=== PATIENT | male | born 1985 | race Caucasian/White ===

== ENCOUNTER 2017-08-07 08:42 | Inpatient (IN) | payer OTHER ==
[2017-08-07 09:47] VITALS: BMI 31.5
--- NOTE | 2017-08-07 13:58 | HP ---
COWS - Scale Resting Pulse: 1= [place] 81-100 Sweatin= Chills/Flushing Restless Observation: 3= Extraneous Movement Pupil Size: 2= Moderately Dilated Bone or Joint Aches: 4=Acute Joint/Muscle Pain Runny Nose/ Eye Tearin= Runny Nose/Eyes GI Upset > 30mins: 2= Nausea/Diarrhea (NAUSEA) Tremor Observation: 2= Slight Tremor Visible Yawning Observation: 0= None Anxiety or Irritability: 2=Irritable/Anxious Goose Flesh Skin: 0=Smooth Skin COWS Score: 19 CIWA Score - CIWA Score Nausea/Vomitin (NAUSEA) Muscle Tremors: 4-Moderate,w/Arms Extend Anxiety: 4-Mod. Anxious/Guarded Agitation: 4-Moderately Restless Paroxysmal Sweats: 1-Minimal Palms Moist Orientation: 0-Oriented Tacttile Disturbances: 0-None Auditory Disturbances: 0-None Visual Disturbances: 0-None Headache: 0-None Present CIWA-Ar Total Score: 16 Admission ROS S - HPI Chief Complaint: HEROIN AND ALCOHOL WITHDRAWAL SX Allergies/Adverse Reactions: Allergies Allergy/AdvReac Type Severity Reaction Status Date / Time Fish Containing Products Allergy Severe Swelling Verified 08/07/17 10:40 No Known Drug Allergies Allergy Verified 08/07/17 10:40 History of Present Illness: 32 Y/O H/MALE WITH A HX OF HEROIN AND ALCOHOL DEPENDENCE SEEKING DETOX [place]. Exam Limitations: No Limitations - Ebola screening Have you traveled outside of the country in the last 21 days: No (N) Have you had contact with anyone from an Ebola affected area: No Have you been sick,other than usual withdrawal symptoms: No Do you have a fever: No - Review of Systems Constitutional: Chills, Night Sweats, Changes in sleep, Unintentional Wgt. Loss EENT: reports: Tearing, Nose Congestion, Dental Problems (CAVITIES IN THE PAST) Respiratory: reports: Shortness of Breath (HX ASTHMA), Wheezing Cardiac: reports: Lightheadedness GI: reports: Nausea, Indigestion : reports: Frequency Musculoskeletal: reports: Back Pain, Joint Pain, Muscle Pain Integumentary: reports: Bruising (SKIN PICKING DUE TO DRUG USE AND ANXIETY.), Rash Neuro: reports: Headache, Tremors, Unsteady Gait, Dizziness Endocrine: reports: No Symptoms Reported Hematology: reports: No Symptoms Reported Psychiatric: reports: Orientated x3, Anxious, Depressed Other Systems: Reviewed and Negative Patient History - Patient Medical History Hx Anemia: No Hx Asthma: Yes (ALBUTEROL INHALER) Hx Chronic Obstructive Pulmonary Disease (COPD): No Hx Cancer: No Hx Cardiac Disorders: No Hx Congestive Heart Failure: No Hx Hypertension: No Hx Hypercholesterolemia: No Hx Pacemaker: No HX Cerebrovascular Accident: No Hx Seizures: No Hx Dementia: No Hx Diabetes: No Hx Gastrointestinal Disorders: No Hx Liver Disease: No Hx Genitourinary Disorders: No Hx Sexually Transmitted Disorders: No Hx Renal Disease (ESRD): No Hx Thyroid Disease: No Hx Human Immunodeficiency Virus (HIV): No (NEGATIVE HX) Hx Hepatitis C: No Hx Depression: Yes (NO MEDS) Hx Suicide Attempt: No (DENIES S/I) Hx Bipolar Disorder: Yes Hx Schizophrenia: No - Patient Surgical History Past Surgical History: No Hx Neurologic Surgery: No Hx Cataract Extraction: No Hx Cardiac Surgery: No Hx Lung Surgery: No Hx Breast Surgery: No Hx Breast Biopsy: No Hx Abdominal Surgery: No Hx Appendectomy: No Hx Cholecystectomy: No Hx Genitourinary Surgery: No Hx Orthopedic Surgery: No Anesthesia Reaction: No - PPD History Previous Implant?: Yes Documented Results: Negative w/proof Date: 01/08/16 Results: NEGATIVE PPD to be Administered?: Yes - Reproductive History Patient is a Female of Child Bearing Age (11 -55 yrs old): No (MALE) - Smoking Cessation Smoking history: Current every day smoker Have you smoked in the past 12 months: Yes Aproximately how many cigarettes per day: 20 Cigars Per Day: 0 Hx Chewing Tobacco Use: No Initiated information on smoking cessation: Yes 'Breaking Loose' booklet given: 08/07/17 - Substance & Tx. History Hx Alcohol Use: Yes (BEER.WHISKEY) Hx Substance Use: Yes (HEROIN/OXYCODONE/COCAINE/MARIJUANA) Substance Use Type: Alcohol, Cocaine, Heroin, Marijuana, Opiates Hx Substance Use Treatment: Yes (LAST [place] AT [facility]) - Substances Abused Cocaine Route: Inhalation Frequency: Daily Amount used: $50 DOLLARS DAILY (1 GRAM DAILY) Age of first use: 16 Date of Last Use: 08/06/17 Alcohol Route: Oral Frequency: Daily Amount used: 1 6 PACK BEER (12 OUNCES), 3-4 SHOTS OF WHISKY Age of first use: 14 Date of Last Use: 08/06/17 Heroin Route: Inhalation Frequency: Daily Amount used: 4-5 BAGS DAILY Age of first use: Date of Last Use: 08/07/17 Marijuana/Hashish Route: Smoking Frequency: Daily Amount used: 1 gram Age of first use: 14 Date of Last Use: 08/06/17 Oxycodone Route: Inhalation Frequency: 1-2 times per week Amount used: 15 mg Age of first use: Date of Last Use: 08/04/17 Family Disease History - Family Disease History Family Disease History: Diabetes: Grandparent, Other: Father ( mva), Mother (migrain headache) Admission Physical Exam [facility] - Vital Signs Vital Signs: Vital Signs - 24 hr 08/07/17 09:45 Temperature 97.1 F L Pulse Rate 100 H Respiratory 16 Rate Blood Pressure 155/70 - Physical General Appearance: Yes: Moderate Distress, Irritable, Anxious HEENTM: Yes: EOMI, Normocephalic, CHON, Pharynx Normal, Nasal Congestion, Rhinorrhea Respiratory: Yes: Chest Non-Tender, Lungs Clear, Normal Breath Sounds, No Respiratory Distress Neck: Yes: No masses,lesions,Nodules, Supple, Trachea in good position Breast: Yes: Breast Exam Deferred Cardiology: Yes: Regular Rhythm, Regular Rate, S1, S2, Tachycardia Abdominal: Yes: Normal Bowel Sounds, Non Tender, Flat, Soft Genitourinary: Yes: Other (N/N/C) Back: Yes: Within Normal Limits Musculoskeletal: Yes: full range of Motion, Gait Steady Extremities: Yes: Normal Range of Motion, Non-Tender, Tremors Neurological: Yes: outsoles channel opener II-XII NML intact, Fully Oriented, Alert, Motor Strength 5/5 Integumentary: Yes: Dry, Warm, Rash ("SKIN PICKING" LESIONS/SCARS ON BOTH UPPER EXTREMITIES. NO REDNESS OR SWELLING.) Lymphatic: Yes: Within Normal Limits - Diagnostic (1) Alcohol dependence with withdrawal Current Visit: Yes Status: Acute Qualifiers: Complication of substance-induced condition: uncomplicated Qualified Code(s ): F10.230 - Alcohol dependence with withdrawal, uncomplicated (2) Opioid dependence on agonist therapy Current Visit: Yes Status: Acute (3) Asthma Current Visit: Yes Status: Chronic Qualifiers: Asthma severity: mild persistent Asthma complication type: with status asthmaticus Qualified Code(s): J45.32 - Mild persistent asthma with status asthmaticus (4) Nicotine dependence unspecified, with withdrawal Current Visit: Yes Status: Acute Qualifiers: Nicotine product type: cigarettes Qualified Code(s): F17.213 - Nicotine dependence, cigarettes, with withdrawal (5) Cannabis abuse Current Visit: Yes Status: Acute (6) Cocaine dependence Current Visit: Yes Status: Acute Qualifiers: Substance use status: uncomplicated Qualified Code(s): F14.20 - Cocaine dependence, uncomplicated Cleared for Admission S - Detox or Rehab [facility] Level of Care: Medically Managed Detox Regimen/Protocol: Methadone/Librium [facility] Breath Alcohol Content Breath Alcohol Content: 0 Urine Drug Screen - Results Drug Screen Negative: No Urine Drug Screen Results: THC-Marijuana, MINE-Cocaine, OPI-Opiates, AMP- Amphetamines, MDMA-Ecstasy, MTD-Methadone, TCA-Tricyclic Antidepress
[2017-08-07] MEDS ORDERED: P-EPHED 60MG/TRIPROLIDI 2.5MG TABLET PO PRN (14:10)
[2017-08-07] MEDS ORDERED: NICOTINE POLACRILEX 4 MG GUM BUC PRN (14:10)
[2017-08-07] MEDS ORDERED: IBUPROFEN 400 MG TABLET (FP) PO PRN (14:10)
[2017-08-07] MEDS ORDERED: MENTHOL/PHENOL 1 EACH UD MM PRN (14:10)
[2017-08-07] MEDS ORDERED: MAGNESIUM HYDROX 2400MG/30ML ORAL SUSPENSION 30 ML CUP PO PRN (14:10)
[2017-08-07] MEDS ORDERED: MAG HYDROX/AL HYDROX/SIMETH 30 ML UNIT-DOSE CUP PO PRN (14:10)
[2017-08-07] MEDS ORDERED: MAGNESIUM CITRATE 300 ML BOTTLE PO PRN (14:10)
[2017-08-07] MEDS ORDERED: guaiFENesin/D-METHORPHAN HB 10 ML UNIT-DOSE CUPS PO PRN (14:10)
[2017-08-07] MEDS ORDERED: ACETAMINOPHEN 325 MG TABLET (FP) PO PRN (14:10)
[2017-08-07] MEDS ORDERED: chlordiazePOXIDE HCL 25 MG CAPSULE PO PRN (14:10)
[2017-08-07] MEDS ORDERED: LOPERAMIDE HCL 2 MG CAPSULE PO PRN (14:10)
[2017-08-07] MEDS ORDERED: chlordiazePOXIDE HCL 25 MG CAPSULE PO ONE (14:35)
[2017-08-07] MEDS ORDERED: METHADONE HCL 10 MG TABLET (FOR DETOX USE ONLY) PO ONE ×2 (14:35→23:00)
[2017-08-07] MEDS: ALBUTEROL SO4 2.5/IPRATROPIUM 0.5 INH SOL 3 ML VIAL.NEB. NEB SCH ×3 (14:40→21:03)
[2017-08-07] MEDS: NICOTINE 21 MG/24 HOURS TOPICAL PATCH TD SCH (15:00)
--- NOTE | 2017-08-07 16:08 | CONSULT ---
[facility] Psychiatric Consult - Data Date of interview: 08/07/17 Admission source: [facility] Identifying data: Readmission to [facility] for this 32 y/o male seeking detox treatment [address] for alcohol,cocaine,cannabis,opiate and nicotine dependence.Patient is single without dependents,domiciled and reportedly employed. Substance Abuse History: Confirmed by the patient in this session.Details in current [facility] report.Smoking history: Current every day smoker. Have you smoked in the past 12 months: Yes. Aproximately how many cigarettes per day: 20. Cigars Per Day: 0. Hx Chewing Tobacco Use: No. Initiated information on smoking cessation: Yes. 'Breaking Loose' booklet given: 08/07/17. - Substance & Tx. History. Hx Alcohol Use: Yes (BEER.WHISKEY). Hx Substance Use: Yes ( HEROIN/OXYCODONE/COCAINE/MARIJUANA). Substance Use Type: Alcohol, Cocaine, Heroin, Marijuana, Opiates. Hx Substance Use Treatment: Yes (LAST TX AT [facility]). - Substances Abused. Cocaine. Route: Inhalation. Frequency: Daily. Amount used: $50 DOLLARS DAILY (1 GRAM DAILY). Age of first use: 16. Date of Last Use: 08/06/17. Alcohol. Route: Oral. Frequency: Daily. Amount used: 1 6 PACK BEER (12 OUNCES), 3-4 SHOTS OF WHISKY. Age of first use: 14. Date of Last Use: 08/06/17. Heroin. Route: Inhalation. Frequency: Daily. Amount used: 4-5 BAGS DAILY. Age of first use: 23. Date of Last Use: 08/07/17. Marijuana/Hashish. Route: Smoking. Frequency: Daily. Amount used: 1 gram. Age of first use: 14. Date of Last Use: 08/06/17. Oxycodone. Route: Inhalation. Frequency: 1-2 times per week. Amount used: 15 mg. Age of first use: 23. Date of Last Use: 08/04/17 Medical History: Bronchial asthma. Psychiatric History: No reported history of psychiatric hospitalizations.Diagnosed with ADHD by a private psychiatrist, Dr Avendaño, based in the [place].Prescribed methylphenidate and bupropion.Patient is also on suboxone maintenance.Mr Silva denies history of suicide attempts. Physical/Sexual Abuse/Trauma History: No history. Additional Comment: Urine Drug Screen Results: THC-Marijuana, MINE-Cocaine, OPI- Opiates, AMP-Amphetamines, MDMA-Ecstasy, MTD-Methadone, TCA-Tricyclic Antidepressant.Noted. Mental Status Exam - Mental Status Exam Alert and Oriented to: Time, Place, Person Cognitive Function: Good Patient Appearance: Well Groomed (tattoos on both forearms) Mood: Nervous, Withdrawn, Anxious Affect: Mood Congruent Patient Behavior: Fatigued, Appropriate, Cooperative Speech Pattern: Clear (luxembourger-fluent), Appropriate Voice Loudness: Normal Thought Process: Intact, Goal Oriented Thought Disorder: Not Present Hallucinations: Denies Suicidal Ideation: Denies Homicidal Ideation: Denies Insight/Judgement: Poor Sleep: Poorly, Difficulty falling asleep Appetite: Good Muscle strength/Tone: Normal Gait/Station: Normal Psychiatric Findings - Problem List ([place] 1, 2,3) (1) Alcohol dependence with withdrawal Current Visit: Yes Status: Acute Qualifiers: Complication of substance-induced condition: uncomplicated Qualified Code(s ): F10.230 - Alcohol dependence with withdrawal, uncomplicated (2) Cocaine dependence Current Visit: Yes Status: Acute Qualifiers: Substance use status: uncomplicated Qualified Code(s): F14.20 - Cocaine dependence, uncomplicated (3) Opioid dependence on agonist therapy Current Visit: Yes Status: Acute (4) Sedative, hypnotic or anxiolytic dependence with withdrawal, unspecified Current Visit: Yes Status: Acute (5) Marihuana dependence Current Visit: Yes Status: Acute (6) Substance induced mood disorder Current Visit: Yes Status: Acute (7) ADHD (attention deficit hyperactivity disorder) Current Visit: Yes Status: Chronic Comment: As per self-report.On psychostimulant. (8) Insomnia Current Visit: Yes Status: Acute - Initial Treatment Plan Initial Treatment Plan: Psychoeducation.Sleep hygiene.Detoxification in progress.Medication : ambien 10 mg po hs prn.Patient is made aware of the risk of parasomnias.Mr Silva agrees with to this careplan.Observation.
[2017-08-07] MEDS: ALBUTEROL SO4 18 GM HFA INHALER IH PRN (17:10)
[2017-08-07] MEDS: chlordiazePOXIDE HCL 25 MG CAPSULE PO SCH ×2 (17:12→22:09)
--- NOTE | 2017-08-07 18:01 | EKG ---
Test Reason : Blood Pressure : / mmHG Vent. Rate : 069 BPM Atrial Rate : 069 BPM P-R Int : 146 ms QRS Dur : 092 ms QT Int : 418 ms P-R-T Axes : -01 074 069 degrees QTc Int : 447 ms NORMAL SINUS RHYTHM NORMAL ECG NO PREVIOUS ECGS AVAILABLE Confirmed by GAMAL OSEI MD ([id number]) on 08/07/2017 6:00:53 PM Referred By: Confirmed By:GAMAL OSEI MD
[2017-08-07 21:03] LABS: URINE APPEARANCE TURBID; URINE BILIRUBIN NEGATIVE (<2.0 mg/dL); URINE COLOR AMBER; URINE GLUCOSE (UA) NEGATIVE (NEGATIVE); URINE KETONE TRACE (NEGATIVE); URINE LEUK ESTERASE NEGATIVE (NEGATIVE); URINE NITRITE NEGATIVE (NEGATIVE); URINE PROTEIN NEGATIVE (NEGATIVE)
[2017-08-07] MEDS ORDERED: MELATONIN 5 MG TABLETS PO PRN (22:00)
[2017-08-07] MEDS: THIAMINE HCL 100 MG TABLET (FP) PO SCH (22:09)
[2017-08-07] MEDS: ZOLPIDEM TARTRATE 10 MG TABLET (PARK CARE ONLY) PO PRN (22:11)
[2017-08-07] MEDS: BUDESONIDE/FORMETEROL FUMARATE 80/4.5 mcg INHALER IH SCH (22:12)
[2017-08-08] MEDS: ALBUTEROL SO4 2.5/IPRATROPIUM 0.5 INH SOL 3 ML VIAL.NEB. NEB SCH ×6 (00:30→19:22)
[2017-08-08] MEDS: ALBUTEROL SO4 18 GM HFA INHALER IH PRN ×2 (05:46→17:09)
[2017-08-08] MEDS: chlordiazePOXIDE HCL 25 MG CAPSULE PO SCH ×4 (06:10→22:24)
[2017-08-08] MEDS ORDERED: METHADONE HCL 10 MG TABLET (FOR DETOX USE ONLY) PO SCH (10:00)
[2017-08-08] MEDS ORDERED: PRENATAL VITAMINS W/ FOLIC ACID TABLET (FP) PO SCH (10:00)
[2017-08-08 10:10] LABS: HEMATOCRIT 42.7 % (35.4-49); HEMOGLOBIN 14.3 GM/dL (11.7-16.9); MCH 30.4 pg (25.7-33.7); MCHC 33.6 g/dl (32.0-35.9); MEAN CELL VOLUME 90.4 fl (80-96); PLATELET COUNT 247 K/MM3 (134-434); RBC 4.72 M/mm3 (4.00-5.60); WHITE BLOOD COUNT 7.6 K/mm3 (4.0-10.0)
[2017-08-08 10:15] LABS: CHLORIDE 110 mmol/L (98-107); POTASSIUM 3.9 mmol/L (3.5-5.1); SODIUM 145 mmol/L (136-145)
[2017-08-08] MEDS: BUDESONIDE/FORMETEROL FUMARATE 80/4.5 mcg INHALER IH SCH ×2 (10:33→22:23)
[2017-08-08] MEDS: NICOTINE 21 MG/24 HOURS TOPICAL PATCH TD SCH (10:33)
[2017-08-08 10:37] LABS: BLOOD UREA NITROGEN 18 mg/dL (7-18); CO2 27 mmol/L (21-32); CREATININE 1.3 mg/dL (0.7-1.3); GLUCOSE,RANDOM 118 mg/dL (74-106)
[2017-08-08 10:38] LABS: ALBUMIN 3.7 g/dl (3.4-5.0); ALK PHOS 52 U/L (45-117); ANION GAP 8 (8-16); BILIRUBIN,TOTAL 0.3 mg/dL (0.2-1.0); CALCIUM 8.5 mg/dL (8.5-10.1); SGOT/AST 8 U/L (15-37); SGPT/ALT 15 U/L (12-78); TOT PROT 6.8 g/dl (6.4-8.2)
--- NOTE | 2017-08-08 11:18 | PN ---
S CIWA - CIWA Score Nausea/Vomitin-No Nausea/No Vomiting Muscle Tremors: 4-Moderate,w/Arms Extend Anxiety: 4-Mod. Anxious/Guarded Agitation: 3 Paroxysmal Sweats: 1-Minimal Palms Moist Orientation: 0-Oriented Tacttile Disturbances: 0-None Auditory Disturbances: 0-None Visual Disturbances: 0-None Headache: 0-None Present CIWA-Ar Total Score: 12 BHS COWS - Scale Resting Pulse: 1= [place] 81-100 Sweatin= Chills/Flushing Restless Observation: 3= Extraneous Movement Pupil Size: 0= Normal to Room Light Bone or Joint Aches: 1= Mild Discomfort Runny Nose/ Eye Tearin= Runny Nose/Eyes GI Upset > 30mins: 0= None Tremor Observation of Outstretched Hands: 2= Slight Tremor Visible Yawning Observation: 1= 1-2x During Session Anxiety or Irritability: 2=Irritable/Anxious Goose Flesh Skin: 0=Smooth Skin COWS Score: 13 S Progress Note (SOAP) Subjective: ANXIETY,SWEATS/CHILLS,FATIGUE. Objective: 08/08/17 11:11 Vital Signs 08/08/17 08/08/17 08/08/17 03:30 06:20 09:27 Temperature 97.3 F L 97.7 F Pulse Rate 77 81 Respiratory 18 20 20 Rate Blood Pressure 128/73 141/70 Laboratory Tests 08/07/17 08/08/17 08/08/17 20:00 06:00 06:00 WBC 7.6 D RBC 4.72 Hgb 14.3 Hct 42.7 MCV 90.4 MCH 30.4 MCHC 33.6 RDW 14.0 D Plt Count 247 MPV 10.0 Sodium 145 Potassium 3.9 Chloride 110 H Carbon Dioxide 27 Anion Gap 8 BUN 18 Creatinine 1.3 D Creat Clearance w eGFR > 60 Random Glucose 118 H D Calcium 8.5 Total Bilirubin 0.3 D AST 8 L ALT 15 Alkaline Phosphatase 52 Total Protein 6.8 Albumin 3.7 Urine Color Rosemary Urine Appearance Turbid Urine pH 5.0 Ur Specific [place] 1.031 Urine Protein Negative Urine Glucose (UA) Negative Urine Ketones Trace H Urine Blood Negative Urine Nitrite Negative Urine Bilirubin Negative Urine Urobilinogen 2.0 Ur Leukocyte Esterase Negative LUNGS:MILD SCATTERED RHONCHI; MILD WHEEZING. Assessment: 08/08/17 11:12 WITHDRAWAL SX Plan: CONTINUE DETOX
[2017-08-08] MEDS ORDERED: AMOX TR/POT CLAV 875MG/125MG TABLETS (FP) PO ONE (12:05)
[2017-08-08] MEDS: AMOX TR/POT CLAV 875MG/125MG TABLETS (FP) PO SCH (17:07)
[2017-08-08] MEDS: ZOLPIDEM TARTRATE 10 MG TABLET (PARK CARE ONLY) PO PRN (22:24)
[2017-08-08] MEDS: THIAMINE HCL 100 MG TABLET (FP) PO SCH (22:24)
[2017-08-09] MEDS: ALBUTEROL SO4 2.5/IPRATROPIUM 0.5 INH SOL 3 ML VIAL.NEB. NEB SCH ×2 (00:36→07:36)
[2017-08-09] MEDS: ALBUTEROL SO4 18 GM HFA INHALER IH PRN (04:00)
[2017-08-09] MEDS: chlordiazePOXIDE HCL 25 MG CAPSULE PO SCH (05:56)
[2017-08-09 06:47] VITALS: BP 129/71; PULSE 84; TEMP 96.9
[2017-08-09] MEDS: AMOX TR/POT CLAV 875MG/125MG TABLETS (FP) PO SCH (07:06)
[2017-08-09] MEDS ORDERED: METHADONE HCL 5 MG TABLET (FOR DETOX USE ONLY) PO SCH (10:00)
--- NOTE | 2017-08-09 11:06 | PN ---
[facility] Progress Note (SOAP) Subjective: PT DECLINED TO COMPLETE DETOX FOR PERSONAL REASONS OF GOING BACK TO WORK. PT REFUSED AFTERCARE REFERRAL. Objective: 08/09/17 11:04 ALERT O X 3 Vital Signs 08/09/17 08/09/17 03:30 06:47 Temperature 96.9 F L Pulse Rate 84 Respiratory 16 18 Rate Blood Pressure 129/71 Laboratory Tests 08/07/17 08/08/17 08/08/17 20:00 06:00 06:00 WBC 7.6 D RBC 4.72 Hgb 14.3 Hct 42.7 MCV 90.4 MCH 30.4 MCHC 33.6 RDW 14.0 D Plt Count 247 MPV 10.0 Sodium 145 Potassium 3.9 Chloride 110 H Carbon Dioxide 27 Anion Gap 8 BUN 18 Creatinine 1.3 D Creat Clearance w eGFR > 60 Random Glucose 118 H D Calcium 8.5 Total Bilirubin 0.3 D AST 8 L ALT 15 Alkaline Phosphatase 52 Total Protein 6.8 Albumin 3.7 Urine Color Rosemary Urine Appearance Turbid Urine pH 5.0 Ur Specific [place] 1.031 Urine Protein Negative Urine Glucose (UA) Negative Urine Ketones Trace H Urine Blood Negative Urine Nitrite Negative Urine Bilirubin Negative Urine Urobilinogen 2.0 Ur Leukocyte Esterase Negative RPR Titer 08/08/17 06:00 WBC RBC Hgb Hct MCV MCH MCHC RDW Plt Count MPV Sodium Potassium Chloride Carbon Dioxide Anion Gap BUN Creatinine Creat Clearance w eGFR Random Glucose Calcium Total Bilirubin AST ALT Alkaline Phosphatase Total Protein Albumin Urine Color Urine Appearance Urine pH Ur Specific [place] Urine Protein Urine Glucose (UA) Urine Ketones Urine Blood Urine Nitrite Urine Bilirubin Urine Urobilinogen Ur Leukocyte Esterase RPR Titer Nonreactive Assessment: 08/09/17 11:05 NAD Plan: 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
--- NOTE | 2017-08-09 11:13 | DS ---
[facility] Detox Discharge Summary Admission Date: 08/07/17 Discharge Date: 08/09/17 - History Present History: Alcohol Dependence, Cannabis Dependence, Cocaine Dependence Additional Comments: PT DECLINED TO CONTINUE WITH DETOX. ALERT O X 3. NAD. PT REPORTS MEDICAL CARE AT [facility] AND PMD DR. ALIYA MORENO. Pertinent Past History: PLEASE SEE DX BELOW - Physical Exam Results Vital Signs: Vital Signs Temperature 96.9 F L 08/09/17 06:47 Pulse Rate 84 08/09/17 06:47 Respiratory Rate 18 08/09/17 06:47 Blood Pressure 129/71 08/09/17 06:47 O2 Sat by Pulse Oximetry (%) 98 08/08/17 11:48 Pertinent Admission Physical Exam Findings: WITHDRAWAL SX Vital Signs 08/09/17 08/09/17 03:30 06:47 Temperature 96.9 F L Pulse Rate 84 Respiratory 16 18 Rate Blood Pressure 129/71 Laboratory Tests 08/07/17 08/08/17 08/08/17 20:00 06:00 06:00 WBC 7.6 D RBC 4.72 Hgb 14.3 Hct 42.7 MCV 90.4 MCH 30.4 MCHC 33.6 RDW 14.0 D Plt Count 247 MPV 10.0 Sodium 145 Potassium 3.9 Chloride 110 H Carbon Dioxide 27 Anion Gap 8 BUN 18 Creatinine 1.3 D Creat Clearance w eGFR > 60 Random Glucose 118 H D Calcium 8.5 Total Bilirubin 0.3 D AST 8 L ALT 15 Alkaline Phosphatase 52 Total Protein 6.8 Albumin 3.7 Urine Color Rosemary Urine Appearance Turbid Urine pH 5.0 Ur Specific [place] 1.031 Urine Protein Negative Urine Glucose (UA) Negative Urine Ketones Trace H Urine Blood Negative Urine Nitrite Negative Urine Bilirubin Negative Urine Urobilinogen 2.0 Ur Leukocyte Esterase Negative RPR Titer 08/08/17 06:00 WBC RBC Hgb Hct MCV MCH MCHC RDW Plt Count MPV Sodium Potassium Chloride Carbon Dioxide Anion Gap BUN Creatinine Creat Clearance w eGFR Random Glucose Calcium Total Bilirubin AST ALT Alkaline Phosphatase Total Protein Albumin Urine Color Urine Appearance Urine pH Ur Specific [place] Urine Protein Urine Glucose (UA) Urine Ketones Urine Blood Urine Nitrite Urine Bilirubin Urine Urobilinogen Ur Leukocyte Esterase RPR Titer Nonreactive - Treatment Hospital Course: Discharged Condition Good - Medication Discharge Medications: Ambulatory Orders Albuterol Sulfate Inhaler - [Ventolin HFA Inhaler -] 2 puff IH Q4H PRN #0 inhaler 01/10/16 Methylphenidate HCl [Concerta] 36 mg PO DAILY 08/07/17 Methylphenidate HCl [Ritalin] 10 mg NR DAILY 08/07/17 Amox-Tr/K Cl [Augmentin 875-125mg Tablet -] 1 tab PO BID@0800,1730 #10 tablet - Diagnosis (1) Alcohol dependence with withdrawal Status: Acute Qualifiers: Complication of substance-induced condition: uncomplicated Qualified Code(s ): F10.230 - Alcohol dependence with withdrawal, uncomplicated (2) Opioid dependence on agonist therapy Status: Acute (3) Asthma Status: Chronic Qualifiers: Asthma severity: mild Asthma persistence: intermittent Asthma complication type: with status asthmaticus Qualified Code(s): J45.22 - Mild intermittent asthma with status asthmaticus (4) Nicotine dependence unspecified, with withdrawal Status: Acute Qualifiers: Nicotine product type: cigarettes Qualified Code(s): F17.213 - Nicotine dependence, cigarettes, with withdrawal (5) Cannabis abuse Status: Acute (6) Cocaine dependence Status: Acute Qualifiers: Substance use status: uncomplicated Qualified Code(s): F14.20 - Cocaine dependence, uncomplicated (7) URI (upper respiratory infection) Status: Acute Qualifiers: URI type: unspecified URI Qualified Code(s): J06.9 - Acute upper respiratory infection, unspecified (8) Bronchitis Status: Acute - AMA Did Patient Leave Against Medical Advice: Yes (AMA)
[2017-08-09] MEDS ORDERED: chlordiazePOXIDE 5 MG CAPSULE PO SCH (17:00)
[2017-08-10] MEDS ORDERED: chlordiazePOXIDE HCL 10 MG CAPSULE PO SCH (17:00)
[2017-08-11] MEDS ORDERED: METHADONE HCL 10 MG TABLET (FOR DETOX USE ONLY) PO SCH (10:00)
[2017-08-12] MEDS ORDERED: METHADONE HCL 5 MG TABLET (FOR DETOX USE ONLY) PO SCH (06:00)
== END 2017-08-09 08:56 | disposition left against medical advice (07) | DRG 770 ==
LOC: YASAS 08:42 → Y3N 14:11
PROVIDERS: ADMIT Internal Medicine; ATTEND Internal Medicine
PROC: HZ2ZZZZ Detoxification Services for Substance Abuse Treatment (ICD-10-PCS; principal; 2017-08-07)
DX: F10.230 Alcohol dependence with withdrawal, uncomplicated (principal); F11.20 Opioid dependence, uncomplicated; F14.20 Cocaine dependence, uncomplicated; F12.10 Cannabis abuse, uncomplicated; F17.213 Nicotine dependence, cigarettes, with withdrawal; F90.9 Attention-deficit hyperactivity disorder, unspecified type; F19.24 Other psychoactive substance dependence with psychoactive substance-induced mood disorder; J45.22 Mild intermittent asthma with status asthmaticus; J06.9 Acute upper respiratory infection, unspecified; J20.9 Acute bronchitis, unspecified; G47.00 Insomnia, unspecified; R00.0 Tachycardia, unspecified; Z91.013 Allergy to seafood
CPT/HCPCS: 36415; 80053; 81003; 85027; 86593; 93005; 93010; 94640; J7620